=== PATIENT | female | born 1995 | race Caucasian/White ===

== ENCOUNTER 2016-05-01 21:24 | Emergency (ER) | payer OTHER ==
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
--- NOTE | 2016-05-01 23:37 | ED MED RECONCILIATION SUMMARY ---
Patient: ANJEL SANDERS Medication Reconciliation Report [facility] VisitID: [id number] [address] [place] [address] 20y, F Registration Date/Time: 05/01/2016 Weight: 82.5 kg Height/Length: 69 in. BMI: 26.9 ALLERGIES: No Known Drug Allergy The patient's Home Medications are listed below: THE FOLLOWING MEDICATIONS NEED TO BE RECONCILED: Levora 0.15/30 (28) Oral The source(s) of the original Home Medication information: Not obtained. The following Medications were given to the patient in the Emergency Department: None. The following Medications were prescribed to the patient: None.
--- NOTE | 2016-05-01 23:37 | ED MAR SUMMARY ---
..... Medication Administration Record [facility] [address] [place], [place] [id number] Patient: ANJEL SANDERS Visit ID: [id number] 20y, F Weight: 82.5 kg Height/Length: 69 in BMI: 26.9 ALLERGIES: No Known Drug Allergy
--- NOTE | 2016-05-01 23:37 | ED MED RECONCILIATION SUMMARY ---
Patient: ANJEL SANDERS Medication Reconciliation Report [facility] VisitID: [id number] [place] [place] [address] 20y, F Registration Date/Time: 05/01/2016 Weight: 82.5 kg Height/Length: 69 in. BMI: 26.9 ALLERGIES: No Known Drug Allergy The patient's Home Medications are listed below: THE FOLLOWING MEDICATIONS NEED TO BE RECONCILED: Levora 0.15/30 (28) Oral The source(s) of the original Home Medication information: Not obtained. The following Medications were given to the patient in the Emergency Department: None. The following Medications were prescribed to the patient: None.
--- NOTE | 2016-05-01 23:37 | ED DISCHARGE INSTRUCTIONS ---
Patient: ANJEL SANDERS General Instructions [facility] VisitID: [id number] [place] [address] 20y, F Registration Date/Time: 05/01/2016 Single contusion with soft tissue hematoma to the forehead.No skin abrasion. INSTRUCTIONS Apply ice for 20 minutes four times a day for two days until better. Don't apply ice directly to skin. Warnings: HEAD INJURY PRECAUTIONS: An observer must check on the patient frequently for the next 24 hours to confirm that the patient responds as expected, is not confused, has no new weakness or numbness, and has no other problems. GENERAL WARNINGS: Return or contact your physician immediately if your condition worsens or changes unexpectedly, if not improving as expected, or if other problems arise. Specifically return if problem worsens. Follow-up: Follow up with your doctor in about two days as needed. Call for an appointment. Summary of care provided to patient. Screening today revealed the patient's blood pressure to be in the hypertensive range. The patient should follow up with a primary care provider for blood pressure management. Understanding of the discharge instructions verbalized by patient. ADDITIONAL INFORMATION Contusion,Soft Tissue You have a CONTUSION, which is a bruise with swelling and some bleeding under the skin. There are no broken bones. This injury takes a few days to a few weeks to heal. Home Care: 1) Keep the injured part elevated to reduce pain and swelling. This is especially important during the first 48 hours. 2) Make an ice pack (ice cubes in a plastic bag, wrapped in a towel) and apply for 20 minutes every 1-2 hours the first day. Continue this 3-4 times a day until the pain and swelling goes away. 3) You may use acetaminophen (Tylenol) or ibuprofen (Motrin, Advil) to control pain, unless another pain medicine was prescribed. [ NOTE : If you have chronic liver or kidney disease or ever had a stomach ulcer or GI bleeding, talk with your doctor before using these medicines.] Follow Up with your doctor or this facility if you are not improving within the next THREE days. [NOTE: If X-rays were taken, they will be reviewed by a radiologist. You will be notified of any new findings that may affect your care.] Get Prompt Medical Attention if any of the following occur: -- Pain or swelling increases -- Injured arm or leg becomes cold, blue, numb or tingly -- Redness, warmth or drainage from the skin Facial Contusion (No Wake-Up) A facial contusion is a bruise with swelling and sometimes bleeding under the skin. The swelling should start to go down within two days. Although there may be no signs of a serious injury at this time, symptoms may appear later which could be a sign of a more serious problem. Therefore, watch for the warning signs below. Home care The following guidelines will help you care for your injury at home: If you have swelling of the face, apply an ice pack (ice cubes in a plastic bag, wrapped in a towel) for 20 minutes every 12 hours until the swelling starts to go down. If you have scrapes or cuts on your face, clean them daily with soap and water. Apply an antibiotic ointment or cream for the first few days to prevent infection. You may use acetaminophen or ibuprofen to control pain, unless another pain medicine was prescribed.If you have chronic liver or kidney disease or ever had a stomach ulcer or GI bleeding, talk with your doctor before using these medicines. Do not use ibuprofen in children under six months of age. For the next 24 hours: Do not take alcohol, sedatives or medicines that make you sleepy. Do not drive or operate machinery. Avoid strenuous activities. No lifting or straining. If you have had any symptoms of aconcussiontoday (nausea, vomiting, dizziness, confusion, headache, memory loss or if you were knocked out), do not return to sports or any activity that could result in another head injury until all symptoms are gone and you have been cleared by your doctor. A second head injury before fully recovering from the first one can lead to serious brain injury. Follow-up care Follow up with your doctor in one week or as directed. Note: Any X-rays or CT scans taken will be reviewed by a radiologist. You will be notified of any new findings that may affect your care. When to seek medical care Get prompt medical attention if any of the following occur: Repeated vomiting Severe or worsening headache or dizziness Unusual drowsiness, or unable to awaken as usual Confusion or change in behavior or speech, memory loss, blurred vision Convulsion (seizure) Increasing scalp or face swelling Redness, warmth or pus from the swollen area Fluid drainage or bleeding from the nose or ears Fever of 100.4F (38C) or higher, or as directed by your health care provider Increasing jaw pain with chewing or increasing pain in the sinuses Nose looks crooked or cannot breathe through your nose after swelling goes down Head Injury, No Wake-Up (Adult) You have had a head injury. It does not appear serious at this time. Symptoms of a more serious problem (concussion, bruising, or bleeding in the brain) may appear later. Therefore, watch for the WARNING SIGNS listed below. Home Care: Your healthcare provider will tell you whether its okay to drive. If so, you can drive yourself home. For the next day or so, be careful when driving or using heavy machinery until you are sure you have no delayed symptoms. During the next 24 hours someone must stay with you to check for the signs below. It is not necessary to stay awake or be awakened during the night. If you have swelling of the face or scalp, apply an ice pack (ice cubes in a plastic bag, wrapped in a towel) for 20 minutes. Do this every 1-2 hours until the swelling starts to go down. Do not use aspirin or ibuprofen (Motrin, Advil) after a head injury.You may use acetaminophen (Tylenol)to control pain, unless another pain medicine was prescribed. [NOTE: If you have chronic liver or kidney disease or ever had a stomach ulcer or GI bleeding, talk with your doctor before using these medicines.] For the next 24 hours: Do not take alcohol, sedatives or medicines that make you sleepy. Avoid strenuous activities. No lifting or straining. If you have had any symptoms of a concussion today (nausea, vomiting, dizziness, confusion, headache, memory loss or if you were knocked out), do not return to sports or any activity that could result in another head injury until all symptoms are gone and you have been cleared by your doctor. A second head injury before fully recovering from the first one can lead to serious brain injury. Follow Up with your doctor if symptoms are not improving after 24 hours, or as directed. [NOTE: A radiologist will review any X-rays or CT scans that were taken. We will notify you of any new findings that may affect your care.] Get Prompt Medical Attention if any of the followingWARNING SIGNS occur: Repeated vomiting Severe or worsening headache or dizziness Unusual drowsiness, or unable to awaken as usual Confusion or change in behavior or speech, memory loss, blurred vision Convulsion (seizure) Increasing scalp or face swelling Redness, warmth or pus from the swollen area Fluid drainage or bleeding from the nose or ears You have been given the following additional information: Contusion, Soft Tissue Facial Contusion, No Wakeup HEAD INJURY, No Wake-Up (Adult) (Electronically signed by Chioma Ferris A.R.N.P. 05/01/2016 22:43)
--- NOTE | 2016-05-01 23:37 | ED MAR SUMMARY ---
..... Medication Administration Record [facility] [address] [place], [place] [id number] Patient: ANJEL SANDERS Visit ID: [id number] 20y, F Weight: 82.5 kg Height/Length: 69 in BMI: 26.9 ALLERGIES: No Known Drug Allergy
== END 2016-05-01 22:00 | disposition home or self-care (01) ==
LOC: ED SRH 21:24
DX: S00.83XA Contusion of other part of head, initial encounter (principal); W22.8XXA Striking against or struck by other objects, initial encounter; Y93.89 Activity, other specified; Y92.009 Unspecified place in unspecified non-institutional (private) residence as the place of occurrence of the external cause; Y99.9 Unspecified external cause status